=== PATIENT | female | born 1960 | race American Indian/Alaskan Native ===

== ENCOUNTER 2019-03-10 12:24 | Emergency (ER) | payer MEDICAID ==
--- NOTE | 2019-03-10 12:39 | Event Note ---
ED Screening Note ED Screening Note: pt presents with a productive cough that began a month ago but pt states it has increased over the last week +subjective fever +rhinorrhea +congestion also has cyst like structure on the anterior right knee for a week no fall or injury This initial assessment/diagnostic orders/clinical plan/treatment(s) is/are subject to change based on patients health status, clinical progression and re- assessment by fellow clinical providers in the ED. Further treatment and workup at subsequent clinical providers discretion. Patient/guardian urged not to elope from the ED as their condition may be serious if not clinically assessed and managed. Initial orders include: XR chest
--- NOTE | 2019-03-10 13:16 | XRay Report ---
CHEST 2 VIEWS INDICATION / CLINICAL INFORMATION: MAIN: prod cough FOR 1 MONTH. COMPARISON: None available. FINDINGS: SUPPORT DEVICES: None. HEART / MEDIASTINUM: No significant abnormality. LUNGS / PLEURA: No significant pulmonary or pleural abnormality. No pneumothorax. ADDITIONAL FINDINGS: Advanced degenerative changes thoracic spine with large anterior osteophytes. IMPRESSION: 1. No acute cardiopulmonary abnormality. Signer Name: Keshav Barnes MD Signed: 03/10/2019 1:12 PM Workstation Name: [id number]
[2019-03-10] MEDS ORDERED: BENZONATATE 100 MG CAP PO ONE (13:49)
[2019-03-10] MEDS ORDERED: IPRATROPIUM/ALBUTEROL SULFATE 3 ML AMPUL.NEB IH ONE (13:50)
--- NOTE | 2019-03-10 14:24 | Emergency Department Report ---
ED General Adult HPI - General Chief complaint: Upper Respiratory Infection Stated complaint: COUGHING Time Seen by Provider: 03/10/19 12:37 Source: EMS Mode of arrival: Wheelchair Limitations: No Limitations - History of Present Illness Initial comments: 58-year-old -[place] female presents to the emergency room complaining of a cough and flulike symptoms 1 month. Patient also complains of 2 weeks of right knee pain and swelling. Patient denies any injury. Patient reports that she's had a subjective fever reports her chest feels like it's burning. It is worse when she coughs just been having yellow to greenish sputum. She reports she has been using her inhaler but not helping. She reports a past medical history asthma arthritis and bipolar. Patient states he takes Seroquel for her bipolar and has been stable. Patient reports taking Aleve for her right knee pain she denies any heavy lifting. Patient does admit that she does not have a primary care provider. She does admit that she is taking pro-air and Flovent. She also complains of mouth being really sore. Onset/Timin -: month(s) Location: chest, lower extremity (right knee) Severity scale (0 -10): 10 Quality: burning, stabbing, aching Consistency: constant Improves with: none Worsens with: movement (of right knee worst with cough. ) Associated Symptoms: cough, fever/chills, nausea/vomiting (nausea), shortness of breath Treatments Prior to Arrival: none - Related Data Previous Rx's Medication Instructions Recorded Last Taken Type Docusate Sodium [Colace CAP] 100 mg PO BID #30 capsule 12/06/12 Unknown Rx Metoclopramide [Reglan TAB] 10 mg PO Q6H PRN #30 tablet 12/06/12 Unknown Rx Pantoprazole [Protonix TAB] 40 mg PO QDAY #30 tablet 12/06/12 Unknown Rx levoFLOXacin 750MG/150ML [Levaquin 500 ml PO DAILY #7 bag 12/06/12 Unknown Rx IV PREMIX] oxyCODONE /ACETAMINOPHEN [Percocet 2 tab PO Q6H PRN #20 tablet 12/06/12 Unknown Rx 5/325 mg] Clotrimazole [Mycelex] 10 mg MM TID #15 tony 03/10/19 Unknown Rx Allergies Allergy/AdvReac Type Severity Reaction Status Date / Time diphenhydramine HCl Allergy Hives Verified 12/03/12 12:36 [From Benadryl] ibuprofen [From Motrin] Allergy Hives Verified 12/03/12 12:36 Penicillins Allergy Hives Verified 12/03/12 12:36 ED Review of Systems ROS: Stated complaint: COUGHING Other details as noted in HPI Comment: All other systems reviewed and negative ED Past Medical Hx - Past Medical History Hx Hypertension: Yes Hx Arthritis: Yes Hx Headaches / Migraines: Yes Hx Asthma: Yes Hx COPD: Yes - Surgical History Hx Cholecystectomy: Yes Hx Appendectomy: Yes Additional Surgical History: 7 hernia repairs, 4 c-sections - Social History Smoking Status: Current Every Day Smoker Substance Use Type: None - Medications Home Medications: Home Medications Medication Instructions Recorded Confirmed Last Taken Type Docusate Sodium [Colace CAP] 100 mg PO BID #30 capsule 12/06/12 Unknown Rx Metoclopramide [Reglan TAB] 10 mg PO Q6H PRN #30 tablet 12/06/12 Unknown Rx Pantoprazole [Protonix TAB] 40 mg PO QDAY #30 tablet 12/06/12 Unknown Rx levoFLOXacin 750MG/150ML [Levaquin 500 ml PO DAILY #7 bag 12/06/12 Unknown Rx IV PREMIX] oxyCODONE /ACETAMINOPHEN [Percocet 2 tab PO Q6H PRN #20 tablet 12/06/12 Unknown Rx 5/325 mg] Clotrimazole [Mycelex] 10 mg MM TID #15 tony 03/10/19 Unknown Rx ED Physical Exam - General Limitations: No Limitations General appearance: alert, in no apparent distress - Head Head exam: Present: atraumatic, normocephalic - Eye Eye exam: Present: normal appearance - ENT ENT exam: Present: mucous membranes moist - Neck Neck exam: Present: normal inspection - Respiratory Respiratory exam: Present: wheezes, prolonged expiratory - Cardiovascular Cardiovascular Exam: Present: regular rate, normal rhythm. Absent: systolic murmur, diastolic murmur, rubs, gallop - GI/Abdominal GI/Abdominal exam: Present: soft, normal bowel sounds - Expanded Lower Extremity Exam Right Hip exam: Present: full ROM Knee exam: Present: tenderness, swelling. Absent: deformity, crepidus, dislocation, erythema, effusion Lower Leg exam: Present: normal inspection, full ROM. Absent: tenderness, swelling, abrasion - Back Exam Back exam: Present: full ROM - Neurological Exam Neurological exam: Present: alert, oriented X3 - Psychiatric Psychiatric exam: Present: normal affect, normal mood - Skin Skin exam: Present: warm, dry, intact, normal color. Absent: rash ED Course Vital Signs 03/10/19 12:33 Temperature 98.4 F Pulse Rate 76 Respiratory 20 Rate Blood Pressure 172/68 O2 Sat by Pulse 96 Oximetry ED Medical Decision Making - Radiology Data Radiology results: report reviewed Patient: ANTONI SUAZO MR#: [id number] : 1960 Acct:[id number] Age/Sex: 58 / F ADM Date: 03/10/19 Loc: ED Attending Dr: Ordering Physician: ALEYDA CARR Date of Service: 03/10/19 Procedure(s): XR chest routine 2V Accession Number(s): [id number] cc: ALEYDA CARR Fluoro Time In Minutes: CHEST 2 VIEWS INDICATION / CLINICAL INFORMATION: MAIN: prod cough FOR 1 MONTH. COMPARISON: None available. FINDINGS: SUPPORT DEVICES: None. HEART / MEDIASTINUM: No significant abnormality. LUNGS / PLEURA: No significant pulmonary or pleural abnormality. No pneumothorax. ADDITIONAL FINDINGS: Advanced degenerative changes thoracic spine with large anterior osteophytes. IMPRESSION: 1. No acute cardiopulmonary abnormality. Signer Name: Keshav Barnes MD Signed: 03/10/2019 1:12 PM Workstation Name: [id number] Transcribed By: DMB Dictated By: Keshav Barnes MD Electronically Authenticated By: Keshav Barnes MD Signed Date/Time: 03/10/19 1312 DD/ 1311 TD/TT: Patient: ANTONI SUAZO MR#: [id number] : 1960 Acct:[id number] Age/Sex: 58 / F ADM Date: 03/10/19 Loc: ED Attending Dr: Ordering Physician: BRADEN LIND DO Date of Service: 03/10/19 Procedure(s): XR knee 3V RT Accession Number(s): [id number] cc: BRADEN LIND DO Fluoro Time In Minutes: Right knee-3 views INDICATION: right knee pain. COMPARISON: None. IMPRESSION: No acute osseous or soft tissue abnormality. Advanced tricompartmental DJD. Signer Name: René Everett MD Signed: 03/10/2019 2:44 PM Workstation Name: [id number] Transcribed By: CHLOE Dictated By: René Everett MD Electronically Authenticated By: René Everett MD Signed Date/Time: 03/10/191443 DD/ 42 TD/TT: - Medical Decision Making 58-year-old -[place] female presents to the emergency room complaining of a cough and flulike symptoms 1 month. Patient also complains of 2 weeks of right knee pain and swelling. Patient denies any injury. Patient reports that she's had a subjective fever reports her chest feels like it's burning. It is worse when she coughs just been having yellow to greenish sputum. She reports she has been using her inhaler but not helping. She reports a past medical history asthma arthritis and bipolar. Patient states he takes Seroquel for her bipolar and has been stable. Patient reports taking Aleve for her right knee pain she denies any heavy lifting. Patient does admit that she does not have a primary care provider. She does admit that she is taking pro-air and Flovent. She also complains of mouth being really sore. Critical care attestation.: If time is entered above; I have spent that time in minutes in the direct care of this critically ill patient, excluding procedure time. ED Disposition Clinical Impression: Thrush, oral, Right anterior knee pain, Asthma, Arthritis of knee, right, Severely overweight Disposition: -01 TO HOME OR SELFCARE Is pt being admited?: No Does the pt Need Aspirin: No Condition: Stable Instructions: Asthma (ED), Arthralgia (ED) Additional Instructions: Continue with your inhalers as prescribed. Follow up with her primary care provider and orthopedic provider. Pain medication such as ibuprofen or Aleve for Tylenol. Prescriptions: Clotrimazole [Mycelex] 10 mg MM TID #15 tony Referrals: Your,Provider [Other] - 3-5 Days CRISTOBAL HASSAN MD [Staff Physician] - 3-5 Days
[2019-03-10 14:45] LABS: Basophils # (Auto) 0.1 K/mm3 (0.0-0.1); Basophils % (Auto) 1.3 % (0.0-1.8); Eosinophils # (Auto) 0.1 K/mm3 (0.0-0.4); Eosinophils % (Auto) 1.3 % (0.0-4.3); Hematocrit 36.2 % (30.3-42.9); Hemoglobin 12.1 gm/dl (10.1-14.3); Lymphocytes # (Auto) 2.5 K/mm3 (1.2-5.4); Lymphocytes % (Auto) 45.1 % (13.4-35.0); Mean Corpuscular HGB Conc 33 % (30-34); Mean Corpuscular Volume 89 fl (79-97); Monocytes # (Auto) 0.4 K/mm3 (0.0-0.8); Monocytes % (Auto) 7.1 % (0.0-7.3); Platelet Count 206 K/mm3 (140-440); Red Blood Count 4.09 M/mm3 (3.65-5.03); Red Cell Distribution Width 15.3 % (13.2-15.2)
--- NOTE | 2019-03-10 14:48 | XRay Report ---
Right knee-3 views INDICATION: right knee pain. COMPARISON: None. IMPRESSION: No acute osseous or soft tissue abnormality. Advanced tricompartmental DJD. Signer Name: René Everett MD Signed: 03/10/2019 2:44 PM Workstation Name: [id number]
[2019-03-10] MEDS ORDERED: dexAMETHasone 20 MG/5 ML VIAL IM ONE (14:50)
[2019-03-10 14:51] LABS: BUN/Creatinine Ratio 16; Blood Urea Nitrogen 11 mg/dL (7-17); Calcium 9.5 mg/dL (8.4-10.2); Hemolysis Index 35
[2019-03-10] MEDS ORDERED: ALBUTEROL 2.5 MG/3 ML NEBU IH ONE (14:51)
[2019-03-10] MEDS ORDERED: IBUPROFEN 600 MG TAB PO ONE (14:51)
--- NOTE | 2019-03-10 14:55 | Event Note ---
Date of service: 03/10/19 Face to Face: Patient is a 58-year-old female, not known to this provider previously, denies DVT and pulmonary embolism risk factors, history of obesity and tobacco use, presenting with cough, wheezing times one month, and nontraumatic right-sided knee pain. Likely having bronchitis as well as severe right-sided knee arthritis. Patient is unfortunately reportedly allergic/intolerant of NSAIDs. She is interested in tobacco cessation. Patient speaking in full sentences and saturating the high 90s on room air. Extensive discussion had with patient regarding need for diet and left cell modifications. Recommended tobacco cessation, weightbearing as tolerated, weight loss, and appropriate diet. The patient will need to follow up with an outpatient primary care doctor. She will be given crutches, nonnarcotic pain medication, albuterol, weightbearing as tolerated, she can follow up with an outpatient primary care doctor. The patient does not appear to have an emergent medical condition at this time. Vital Signs - 24 hr 03/10/19 03/10/19 12:33 15:39 Temperature 98.4 F Pulse Rate 76 Respiratory 20 18 Rate Blood Pressure 172/68 O2 Sat by Pulse 96 Oximetry Lab Results 03/10/19 03/10/19 Range/Units 14:22 14:22 WBC 5.5 (4.5-11.0) K/mm3 RBC 4.09 (3.65-5.03) M/mm3 Hgb 12.1 (10.1-14.3) gm/dl Hct 36.2 (30.3-42.9) % MCV 89 (79-97) fl MCH 29 (28-32) pg MCHC 33 (30-34) % RDW 15.3 H (13.2-15.2) % Plt Count 206 (140-440) K/mm3 Lymph % (Auto) 45.1 H (13.4-35.0) % [place] % (Auto) 7.1 (0.0-7.3) % Eos % (Auto) 1.3 (0.0-4.3) % Baso % (Auto) 1.3 (0.0-1.8) % Lymph # 2.5 (1.2-5.4) K/mm3 [place] # 0.4 (0.0-0.8) K/mm3 Eos # 0.1 (0.0-0.4) K/mm3 Baso # 0.1 (0.0-0.1) K/mm3 Seg Neutrophils % 45.2 (40.0-70.0) % Seg Neutrophils # 2.5 (1.8-7.7) K/mm3 Sodium 142 (137-145) mmol/L Potassium 4.2 (3.6-5.0) mmol/L Chloride 103.4 (98-107) mmol/L Carbon Dioxide 24 (22-30) mmol/L Anion Gap 19 mmol/L BUN 11 (7-17) mg/dL Creatinine 0.7 (0.7-1.2) mg/dL Estimated GFR > 60 ml/min BUN/Creatinine Ratio 16 % Glucose 86 (65-100) mg/dL Calcium 9.5 (8.4-10.2) mg/dL X-ray the chest unremarkable.
[2019-03-10] MEDS ORDERED: ACETAMINOPHEN 325 MG TAB PO ONE (15:28)
[2019-03-10] MEDS ORDERED: ACETAMINOPHEN 500 MG TAB ONE (15:35)
[2019-03-10 16:46] VITALS: BP 180/76
== END 2019-03-10 17:16 | disposition home or self-care (01) ==
LOC: ED 12:24
DX: B37.0 Candidal stomatitis (principal); M25.561 Pain in right knee; I10 Essential (primary) hypertension; J44.1 Chronic obstructive pulmonary disease with (acute) exacerbation; G43.909 Migraine, unspecified, not intractable, without status migrainosus; F17.200 Nicotine dependence, unspecified, uncomplicated; Z90.49 Acquired absence of other specified parts of digestive tract; Z98.890 Other specified postprocedural states; Z79.899 Other long term (current) drug therapy; Z88.0 Allergy status to penicillin; Z88.1 Allergy status to other antibiotic agents
CPT/HCPCS: 36415; 71046; 73562; 80048; 85025; 96372; 99284; J1100

== ENCOUNTER 2020-01-02 08:00 | Outpatient (CLI) | payer MEDICAID | END 2020-01-02 10:00 | disposition home or self-care (01) | LOC: SLR 08:00 | PROVIDERS: ATTEND Internal Medicine | DX: G47.33 Obstructive sleep apnea (adult) (pediatric) (principal) | CPT/HCPCS: 95811 ==